=== PATIENT | female | born 1950 | race Two or more races ===

== ENCOUNTER 2016-10-26 21:48 | Emergency (ER) | payer SELFPAY ==
[~2016-10-26] VITALS: Ht 157.5 cm; Wt 67.0 kg
[2016-10-26 21:52] VITALS: Ht 157.5 cm; Wt 67.0 kg
[2016-10-26] MEDS ORDERED: SOD CHLORIDE 0.9% 1,000 ML IV STA (22:39)
[2016-10-26] MEDS ORDERED: ONDANSETRON 4 MG INJ IV STA (22:39)
[2016-10-26 22:46] LABS: URINE BLOOD (Dip) POC Trace-intact (NEGATIVE)
[2016-10-26 23:08] LABS: BASOPHILS % 0.4 % (0.0-2.0); EOSINOPHILS # 0.4 10^3/ul (0.0-0.5); EOSINOPHILS % 4.3 % (0.0-7.0); HEMATOCRIT 40.8 % (37.0-47.0); HEMOGLOBIN 13.8 g/dl (12.0-16.0); LYMPHOCYTES # 1.9 10^3/ul (0.8-2.9); LYMPHOCYTES % 22.2 % (15.0-51.0); MEAN CORPUSCULAR HEMOGLOBIN 31.2 pg (29.0-33.0); MEAN CORPUSCULAR HGB CONC 33.8 g/dl (32.0-37.0); MEAN CORPUSCULAR VOLUME 92.1 fl (82.0-101.0); MEAN PLATELET VOLUME 7.9 fl (7.4-10.4); MONOCYTE # 0.5 10^3/ul (0.3-0.9); MONOCYTES % 6.1 % (0.0-11.0); NEUTROPHIL # 5.6 10^3/ul (1.6-7.5); PLATELET COUNT 275 10^3/UL (140-440); RED BLOOD COUNT 4.43 10^6/ul (4.20-5.40); RED CELL DISTRIBUTION WIDTH 13.7 % (11.5-14.5); UNCORRECTED WBC 8.4 10^3/ul (4.8-10.8); WHITE BLOOD COUNT 8.4 10^3/ul (4.8-10.8)
--- NOTE | 2016-10-26 23:10 | RADRPT ---
PROCEDURE: XR Chest. CLINICAL INDICATION: Abdominal pain. TECHNIQUE: Single frontal view. COMPARISON: None. FINDINGS: The lungs are clear. The heart size is normal. There is no pleural effusion or pneumothorax. There is a nonunited fracture of the midshaft of the left clavicle. IMPRESSION: 1. Nonunited fracture of the midshaft of the left clavicle. 2. Otherwise normal chest radiograph. RPTAT: QQ .Jamal Moore MD, MD Date Time Electronically viewed and signed by .Jamal Moore MD, on 10/26/2016 23:10 .R/
[2016-10-26 23:15] LABS: CONDITION 1
[2016-10-26] MEDS ORDERED: EZET1TAB10 PO (23:16)
[2016-10-26] MEDS ORDERED: PANT40TA3 PO (23:17)
[2016-10-26 23:19] LABS: ALBUMIN 4.3 g/dl (3.3-4.9); CHLORIDE 104 mmol/L (97-110); POTASSIUM 4.3 mmol/L (3.5-5.1); SODIUM 143 mmol/L (135-144)
[2016-10-26 23:21] LABS: ADD UMIC YES; BILIRUBIN,INDIRECT 0.1 mg/dl (0-1.1); BILIRUBIN,TOTAL 0.1 mg/dl (0.2-1.3); CREATININE 0.56 mg/dl (0.44-1.00); URINE BILIRUBIN (Dip) NEGATIVE (NEGATIVE); URINE BLOOD (Dip) NEGATIVE (NEGATIVE); URINE COLOR LT. YELLOW (YELLOW); URINE GLUCOSE (Dip) NEGATIVE (NEGATIVE); URINE KETONES (Dip) NEGATIVE (NEGATIVE); URINE LEUKOCYTE ESTERASE (Dip) 1+ (NEGATIVE); URINE NITRITE (Dip) NEGATIVE (NEGATIVE); URINE TOTAL PROTEIN (Dip) NEGATIVE (NEGATIVE); URINE UROBILINOGEN (Dip) 0.2 E.U./dL (0.1-1.0)
[2016-10-26 23:22] LABS: ALANINE AMINOTRANSFERASE 44 IU/L (13-69); ALBUMIN/GLOBULIN RATIO 1.38; ALKALINE PHOSPHATASE 134 IU/L (42-121); ANION GAP 14 (8-16); ASPARTATE AMINO TRANSFERASE 35 IU/L (15-46); BLOOD UREA NITROGEN 11 mg/dl (7-20); CALCIUM 9.5 mg/dl (8.4-10.2); CARBON DIOXIDE 29 mmol/L (21-31); GLUCOSE 121 mg/dl (70-220); TOTAL PROTEIN 7.4 g/dl (6.1-8.1)
[2016-10-26 23:36] LABS: TROPONIN-I < 0.012 ng/ml (0.00-0.12)
[2016-10-26 23:40] LABS: URINE RBCS 0-2 /HPF (0)
[2016-10-26 23:41] LABS: BACTERIA,URINE MANY; SQUAMOUS EPITHELIAL CELL,UR FEW
[2016-10-27] MEDS ORDERED: ONDA4TAB8 PO (00:19)
[2016-10-27] MEDS ORDERED: CEPH-443 PO (00:19)
--- NOTE | 2016-10-27 00:25 | ERA ---
ER Documentation Chief Complaint Date/Time DATE: 10/27/16 TIME: 00:21 Chief Complaint Dizziness, Nausea and ringing in the ears HPI 66-year-old woman presents with 1 day of dizziness bilateral tinnitus, and nausea. She denies vomiting or diarrhea, no chest pain or shortness of breath, no fevers or chills, no head injury, no hematuria or dysuria noted. Patient denies abdominal pain. Patient denies recent weight loss or recent travel, and recent antibiotic use. She denies previous similar symptoms. ROS All systems reviewed and are negative except as per history of present illness. Medications Home Meds Active Scripts Ondansetron Hcl* (Zofran*) 4 Mg Tablet, 4 MG PO Q8H Y for NAUSEA AND/OR VOMITING , #12 TAB Prov:JACKIE ODOM MD 10/27/16 Cephalexin* (Keflex*) 500 Mg Capsule, 500 MG PO QID for 5 Days, CAP Prov:JACKIE ODOM MD 10/27/16 Reported Medications Pantoprazole* (Protonix*) 40 Mg Tablet.dr, 40 MG PO DAILY, TAB 10/26/16 Ezetimibe/Simvastatin (Vytorin 10-40 mg Tablet) 1 Each Tablet, 1 EACH PO QHS, TAB 10/26/16 Allergies Allergies: Coded Allergies: No Known Allergy (Unverified , 10/26/16) PMhx/Soc Gastritis History of Surgery: Yes (removal of a cyst on her thyroid 25 yrs ago) Hx Alcohol Use: No Hx Substance Use: No Hx Tobacco Use: No Smoking Status: Never smoker FmHx Family History: No diabetes Physical Exam Vitals Vital Signs Date Time Temp Pulse Resp B/P Pulse Ox O2 Delivery O2 Flow Rate FiO2 10/26/16 21:52 96.9 56 18 183/87 98 Physical Exam GENERAL: Well-developed, well-nourished, well-hydrated, in no apparent distress , looks nontoxic in appearance HEENT: Moist mucous membranes, pink conjunctiva, no cervical spine tenderness or step-off deformities, no goiter, no jaundice or icterus, extraocular movements intact without pain. No submandibular induration, and no pharyngeal erythema NEURO: Alert and oriented 3, cranial nerves II through XII intact bilaterally, pupils equal round reactive to light, no focal deficits or facial asymmetry, sensation intact distally Strength 5/5 in upper and lower extremities bilaterally CARDIAC: Bradycardic and regular, no murmurs rubs or gallops LUNGS: Clear bilaterally no wheezing crackles or stridor ABDOMEN: Soft nontender, no guarding, no rigidity, no rebound, no psoas sign no obturator sign. Normoactive bowel sounds SKIN: Warm and dry to touch, no abrasions, contusions, or hematomas, no lacerations, no ecchymosis, no target lesions, and without ulcers EXTREMITIES: No clubbing cyanosis or edema, calves are bilaterally symmetrical, no Homans sign, no popliteal cord sign. Distal pulses equal and bilateral PSYCH: Normal affect without agitation or irritability Result Diagram: 10/26/16224410/26/162244 Results 24 hrs Laboratory Tests Test 10/26/16 22:45 10/26/16 22:47 Alanine Aminotransferase (ALT/SGPT) 44IU/L Albumin 4.3g/dl Albumin/Globulin Ratio 1.38 Alkaline Phosphatase 134IU/L Anion Gap 14 Aspartate Amino Transf (AST/SGOT) 35IU/L Basophils # 0.010^3/ul Basophils % 0.4% Blood Urea Nitrogen 11mg/dl Calcium Level 9.5mg/dl Carbon Dioxide Level 29mmol/L Chloride Level 104mmol/L Creatinine 0.56mg/dl Direct Bilirubin 0.00mg/dl Eosinophils # 0.410^3/ul Eosinophils % 4.3% Globulin 3.10g/dl Glucose Level 121mg/dl Hematocrit 40.8% Hemoglobin 13.8g/dl Indirect Bilirubin 0.1mg/dl Lipase 162U/L Lymphocytes # 1.910^3/ul Lymphocytes % 22.2% Mean Corpuscular Hemoglobin 31.2pg Mean Corpuscular Hemoglobin Concent 33.8g/dl Mean Corpuscular Volume 92.1fl Mean Platelet Volume 7.9fl Monocytes # 0.510^3/ul Monocytes % 6.1% Neutrophils # 5.610^3/ul Neutrophils % 67.0% Nucleated Red Blood Cells # 0.010^3/ul Nucleated Red Blood Cells % 0.0/100WBC Platelet Count 12331^3/UL Potassium Level 4.3mmol/L Red Blood Count 4.4310^6/ul Red Cell Distribution Width 13.7% Sodium Level 143mmol/L Total Bilirubin 0.1mg/dl Total Protein 7.4g/dl Troponin I < 0.012ng/ml Urine Amorphous Urates MANY Urine Bacteria MANY Urine Bilirubin NEGATIVE Urine Clarity SLIGHTLY CLOUDY Urine Color LT. YELLOW Urine Glucose NEGATIVE% Urine Hemoglobin NEGATIVE Urine Ketones NEGATIVE Urine Leukocyte Esterase 1+ Urine Microscopic RBC 0-2/HPF Urine Microscopic WBC 25-50/HPF Urine Nitrite NEGATIVE Urine Specific [place] 1.010 Urine Squamous Epithelial Cells FEW Urine Total Protein NEGATIVE Urine Urobilinogen 0.2 E.U./dL Urine pH 8.5 White Blood Count 8.410^3/ul Bedside Urine Blood Trace-intact Bedside Urine Glucose (UA) Negative Bedside Urine Ketones (LAB) Negative Bedside Urine Leukocyte Esterase (L 1+ Bedside Urine Nitrite (LAB) Negative Bedside Urine Protein (LAB) Trace Bedside Urine pH (LAB) 8.5 Current Medications Medications (Trade) Dose Ordered Sig/[place] Route PRN Reason Start Time Stop Time Status Last Admin Dose Admin Sodium Chloride (NS) 1,000 ml @ 1,000 mls/hr Q1H STAT IV 10/26/16 22:39 10/26/16 23:38 DC 10/26/16 22:56 Ondansetron HCl 4 mg 4 mg ONCE STAT IV 10/26/16 22:39 10/26/16 22:40 DC 10/26/16 22:56 Ceftriaxone Sodium (Rocephin) 50 ml @ 100 mls/hr ONCE ONCE IVPB 10/27/16 00:30 10/27/16 00:59 DC 10/27/16 00:26 Procedures/MDM IV line was established 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 Patient was afebrile. EKG performed, read by me revealed a sinus bradycardia 50 bpm, normal axis, right ventricular conduction delay with a QRS duration of 100 ms, no concerning ST elevations or depressions noted. Chest X-ray 1V Interpreted by me: Soft Tissue: No acute abnormalities Bones: No acute abnormalities Mediastinum/Cardiac Silhouette/Lungs: No acute abnormalities I administered 1 L normal saline intravenously and Zofran 4 mg IV with good response. CBC and electrolytes were normal, liver function tests were normal, troponin was negative. Urinalysis was positive for infection. I administered ceftriaxone 1 g IV here in the emergency department. Differential diagnoses considered, included but not limited to acute coronary syndrome, pulmonary embolism, aortic dissection, abdominal aortic aneurysm, sepsis, stroke, meningitis, encephalitis, pneumonia, appendicitis, cholecystitis , bowel obstruction, pyelonephritis, nephrolithiasis, cystitis, as well as metabolic, hematologic, and electrolyte abnormalities. As well as abscess, cellulitis, fractures, and dislocations. Patient feels much better at this time, and vital signs are normal, symptoms have improved. I did give strict instructions to return to the ED if symptoms continue or worsen, patient will otherwise follow-up with primary care physician. Patient understood instructions and agreed to plan. Departure Diagnosis: Primary Impression: UTI (urinary tract infection) Qualified Code: N30.00 - Acute cystitis without hematuria Additional Impressions: Dizziness Tinnitus Qualified Code: H93.13 - Tinnitus, bilateral Condition: Good Patient Instructions: Dizziness, Unk Cause, Bladder Infection, Female (Adult) JACKIE ODOM MD Oct 27, 2016 00:25
[2016-10-27] MEDS ORDERED: CEFTRIAXONE 1 GM/50 ML (PMX) 50 ML IVPB ONE (00:30)
[2016-10-27 01:41] VITALS: BP 135/66; PULSE 58; RESP 18
== END 2016-10-27 01:42 | disposition home or self-care (01) ==
LOC: E/R 21:48
DX: N30.00 Acute cystitis without hematuria (principal); H93.13 Tinnitus, bilateral; R11.0 Nausea
CPT/HCPCS: 36415; 71010; 80053; 81001; 83690; 84484; 85025; 93005; 96361; 96365; 96375; 99285; J0696; J2405; J7030; 81003